=== PATIENT | female | born 1980 | race Two or more races ===

== ENCOUNTER 2017-10-16 07:39 | Emergency (ER) | payer BC, OTHER ==
[~2017-10-16] VITALS: Ht 167.6 cm; Wt 81.6 kg
[2017-10-16] MEDS ORDERED: cloNIDine HCL 0.1 MG TAB PO ONE (08:00)
[2017-10-16] MEDS ORDERED: HYDROcodone-ACET 10/325MG TAB PO ONE (08:30)
[2017-10-16 09:21] VITALS: BP 132/91
== END 2017-10-16 09:34 | disposition home or self-care (01) ==
LOC: ER 07:39
DX: I10 Essential (primary) hypertension (principal); F12.10 Cannabis abuse, uncomplicated
CPT/HCPCS: 93005

== ENCOUNTER 2020-12-20 22:20 | Emergency (ER) | payer BC, MEDICAID ==
[~2020-12-20] VITALS: Ht 167.6 cm; Wt 108.9 kg
[2020-12-21 02:00] VITALS: BP 166/92
[2020-12-21] MEDS ORDERED: IPRATROPIUM BROM 0.5 MG/2.5ML INH SOL NEB ONE (02:00)
[2020-12-21] MEDS ORDERED: ALBUTEROL SULF 2.5 MG/0.5ML(0.5%) NEB SOLN NEB ONE (02:00)
== END 2020-12-21 02:53 | disposition home or self-care (01) ==
LOC: ER 22:24
DX: J18.9 Pneumonia, unspecified organism (principal); Z20.822 Contact with and (suspected) exposure to COVID-19
CPT/HCPCS: 36415; 71045; 87426; 93005; 94640; 99285; J7644

== ENCOUNTER 2021-01-08 23:06 | Emergency (ER) | payer BC, MEDICAID ==
[~2021-01-08] VITALS: Ht 167.6 cm; Wt 90.7 kg
[2021-01-08 23:28] LABS: Hematocrit 37.8 % (36.0-46.0); Hemoglobin 12.9 g/dL (12.2-16.2); Mean Corpuscular Hemoglobin 29.4 pg (28.0-32.0); Mean Corpuscular Hgb Conc. 34.1 g/dL (32.0-36.0); Mean Corpuscular Volume 86.2 fL (80.0-100.0); Red Blood Cells 4.39 10^6/uL (4.0-5.20); Red Cell Distribution Width 14.7 % (11.8-14.3); White Blood Cell 13.2 10^3/uL (4.4-10.8)
[2021-01-08 23:31] LABS: Basophils % (manual) 0 (0.0-2.0); Blast Cells 0; Metamyelocytes % 0; Myelocytes % 0; Promyelocytes % 0; Reactive Lymphocytes 0
[2021-01-08 23:47] LABS: Anion Gap 6 (5-15); BUN/Creatinine Ratio 23.4; Blood Urea Nitrogen 18 mg/dL (7-18); Calcium 9.2 mg/dL (8.5-10.1); Carbon Dioxide 29 mmol/L (21-32); Chloride 107 mmol/L (98-107); GFR African American 106 mL/min; GFR Non-African American 88 mL/min; Glucose 154 mg/dL (74-106); Potassium 3.5 mmol/L (3.5-5.1); Sodium 142 mmol/L (136-145)
[2021-01-09 00:07] LABS: Band Neutrophils % (manual) 3; Eosinophils % (manual) 15 (0-7); Lymphocytes % (manual) 25 (10.0-50.0); Monocytes % (manual) 5 (0-12)
[2021-01-09] MEDS ORDERED: methylPREDNISolone SOD SUCC 125 MG/2 ML VL IV ONE (02:30)
[2021-01-09] MEDS ORDERED: AZITHROMYCIN 500MG/ 250ML 250 ML IV ONE (02:30)
[2021-01-09] MEDS ORDERED: SODIUM CHLORIDE 0.9% 1,000 ML IV ONE (02:30)
[2021-01-09] MEDS ORDERED: DOXYCYCLINE 100MG/250ML 250 ML IV ONE (02:30)
[2021-01-09] MEDS ORDERED: ALBUTEROL SULF 2.5 MG/0.5ML(0.5%) NEB SOLN NEB ONE (02:30)
[2021-01-09] MEDS ORDERED: IPRATROPIUM BROM 0.5 MG/2.5ML INH SOL NEB ONE (02:30)
[2021-01-09] MEDS ORDERED: PROMETHAZINE W/CODEINE 5 ML ORAL SYRUP PO ONE (03:15)
[2021-01-09 04:55] VITALS: BP 153/86
== END 2021-01-09 05:09 | disposition home or self-care (01) ==
LOC: ER 23:06
DX: J18.9 Pneumonia, unspecified organism (principal)
CPT/HCPCS: 36415; 71045; 80048; 84484; 85007; 85027; 93005; 94640; 96365; 96366; 96375; 99285; J2930; J3490; J7644

== ENCOUNTER 2021-10-01 17:17 | Inpatient (IN) | payer BC, MEDICAID, OTHER ==
[~2021-10-01] VITALS: Ht 167.6 cm; Wt 88.8 kg
[2021-10-01 20:01] LABS: BUN/Creatinine Ratio 13.8; Calcium 9.4 mg/dL (8.5-10.1); Potassium 3.1 mmol/L (3.5-5.1)
[2021-10-01 20:03] LABS: Bilirubin, Total 0.8 mg/dL (0.2-1.0); Total Protein 8.3 g/dL (6.4-8.2)
[2021-10-01 20:04] LABS: Hemoglobin 14.3 g/dL (12.2-16.2); Mean Corpuscular Hemoglobin 29.6 pg (28.0-32.0); Mean Corpuscular Volume 86.9 fL (80.0-100.0); Red Blood Cells 4.84 10^6/uL (4.0-5.20); Red Cell Distribution Width 13.9 % (11.8-14.3); White Blood Cell 14.9 10^3/uL (4.4-10.8)
[2021-10-01 20:07] LABS: Band Neutrophils % (manual) 0; Basophils % (manual) 0 (0.0-2.0); Blast Cells 0; Metamyelocytes % 0; Myelocytes % 0; Promyelocytes % 0; Reactive Lymphocytes 0
[2021-10-01] MEDS ORDERED: ALBUTEROL SULF 2.5 MG/0.5ML(0.5%) NEB SOLN NEB ONE (20:15)
[2021-10-01] MEDS ORDERED: IPRATROPIUM BROM 0.5 MG/2.5ML INH SOL NEB ONE (20:15)
[2021-10-01] MEDS ORDERED: CEFTRIAXONE SODIUM 2 GM in D5W 5% 50 ML IV ONE (20:15)
[2021-10-01] MEDS ORDERED: DexAMETHasone SOD PHOS 10MG/1ML VIAL INJ IV ONE (20:15)
[2021-10-01] MEDS ORDERED: guaiFENesin-CODEINE Liq 5 ML UD PO ONE (21:15)
[2021-10-01 21:55] LABS: Eosinophils % (manual) 22 (0-7); Lymphocytes % (manual) 6 (10.0-50.0); Monocytes % (manual) 1 (0-12)
[2021-10-01] MEDS ORDERED: AZITHROMYCIN 500MG/ 250ML 250 ML IV ONE (22:15)
[2021-10-01] MEDS ORDERED: ONDANSETRON HCL 4 MG/2 ML VIAL IV PRN (22:30)
[2021-10-01] MEDS ORDERED: NITROGLYCERIN 0.4 MG SL TAB SL PRN (22:30)
[2021-10-01] MEDS ORDERED: TEMAZEPAM 15 MG CAP PO PRN (22:30)
[2021-10-01] MEDS ORDERED: MORPHINE SULFATE INJECTION 2 MG/ML SYRG IV PRN (22:30)
[2021-10-01] MEDS ORDERED: ACETAMINOPHEN 325 MG TAB PO PRN (22:30)
[2021-10-02 00:57] VITALS: BP 145/83
[2021-10-02 02:00] VITALS: BP 128/77
[2021-10-02] MEDS ORDERED: AZIT250T9 PO (03:57)
[2021-10-02] MEDS ORDERED: TRIA37.56 PO (03:57)
[2021-10-02] MEDS ORDERED: BENZ200C64 PO (03:57)
[2021-10-02] MEDS ORDERED: METO25TA93 PO (03:57)
[2021-10-02] MEDS: guaiFENesin-CODEINE Liq 5 ML UD PO PRN ×2 (04:33→18:22)
[2021-10-02 05:00] VITALS: BP 148/84
[2021-10-02 05:31] LABS: Basophils # (auto) 0 10 ^3/uL (0-0.2); Basophils % (auto) 0.4 % (0.0-2.0); Eosinophils # (auto) 0.2 10 ^3/uL (0-0.8); Hematocrit 41.4 % (36.0-46.0); Hemoglobin 14.1 g/dL (12.2-16.2); Lymphocytes # (auto) 1.6 10 ^3/uL (0.4-5.4); Lymphocytes % (auto) 14.2 % (10.0-50.0); Mean Corpuscular Hemoglobin 29.2 pg (28.0-32.0); Mean Corpuscular Hgb Conc. 34.1 g/dL (32.0-36.0); Mean Corpuscular Volume 85.5 fL (80.0-100.0); Monocytes # (auto) 0.2 10 ^3/uL (0-1.3); Monocytes % (auto) 1.7 % (0.0-12.0); Neutrophils # (auto) 9.3 10 ^3/uL (1.6-8.6); Neutrophils % (auto) 81.7 % (37.0-80.0); Red Blood Cells 4.84 10^6/uL (4.0-5.20); White Blood Cell 11.4 10^3/uL (4.4-10.8)
[2021-10-02 05:44] LABS: Calcium 9.2 mg/dL (8.5-10.1); Potassium 3.6 mmol/L (3.5-5.1)
[2021-10-02 05:46] LABS: BUN/Creatinine Ratio 18.8
[2021-10-02 09:38] VITALS: BP 162/86
[2021-10-02] MEDS: ZINC SULFATE 220mg CAP or TAB PO SCH (09:50)
[2021-10-02] MEDS: PANTOPRAZOLE 40 MG TAB PO SCH (09:51)
[2021-10-02] MEDS: TRIAMTERENE/HCTZ 37.5/25 MG CAP/TAB PO SCH (09:51)
[2021-10-02] MEDS: ENOXAPARIN SOD 40 MG/0.4 ML SYRINGE SC SCH (09:52)
[2021-10-02] MEDS: METOPROLOL SUCCINATE XL 50 MG TAB PO SCH (09:52)
[2021-10-02] MEDS: ASCORBIC ACID 500 MG TAB PO SCH ×2 (09:52→21:19)
[2021-10-02] MEDS ORDERED: DexAMETHasone SOD PHOS 10MG/1ML VIAL INJ IV SCH (10:00)
[2021-10-02] MEDS ORDERED: LACTATED RINGER'S 1,000 ML IV SCH (15:15)
[2021-10-02 17:40] VITALS: BP 124/73
[2021-10-02] MEDS: cefTRIAXone 1GM/50ML D5W 50 ML IV SCH (21:18)
[2021-10-02 22:00] VITALS: BP 139/79
[2021-10-02] MEDS: AZITHROMYCIN 500MG/ 250ML 250 ML IV SCH (22:19)
[2021-10-03 05:00] VITALS: BP 135/74
[2021-10-03 05:39] LABS: Basophils # (auto) 0.1 10 ^3/uL (0-0.2); Basophils % (auto) 0.5 % (0.0-2.0); Eosinophils # (auto) 0.1 10 ^3/uL (0-0.8); Eosinophils % (auto) 0.7 % (0.0-7.0); Hematocrit 38.3 % (36.0-46.0); Hemoglobin 13.1 g/dL (12.2-16.2); Lymphocytes # (auto) 3.1 10 ^3/uL (0.4-5.4); Lymphocytes % (auto) 16.9 % (10.0-50.0); Mean Corpuscular Hemoglobin 29.5 pg (28.0-32.0); Mean Corpuscular Hgb Conc. 34.2 g/dL (32.0-36.0); Mean Corpuscular Volume 86.4 fL (80.0-100.0); Monocytes # (auto) 1.4 10 ^3/uL (0-1.3); Monocytes % (auto) 7.6 % (0.0-12.0); Neutrophils # (auto) 13.6 10 ^3/uL (1.6-8.6); Neutrophils % (auto) 74.3 % (37.0-80.0); Nucleated Red Blood Cells % 0.1 %; Red Blood Cells 4.44 10^6/uL (4.0-5.20); Red Cell Distribution Width 14.1 % (11.8-14.3); White Blood Cell 18.3 10^3/uL (4.4-10.8)
[2021-10-03 05:53] LABS: Potassium 3.4 mmol/L (3.5-5.1)
[2021-10-03 05:58] LABS: Albumin 3.6 g/dL (3.4-5.0); BUN/Creatinine Ratio 25.7; Calcium 8.9 mg/dL (8.5-10.1); Magnesium 2.5 mg/dL (1.6-2.6)
[2021-10-03 06:01] LABS: Bilirubin, Total 0.4 mg/dL (0.2-1.0); Total Protein 7.6 g/dL (6.4-8.2)
[2021-10-03] MEDS: IPRATROPIUM BROM 0.5 MG/2.5ML INH SOL NEB PRN ×2 (08:12→18:15)
[2021-10-03] MEDS: ALBUTEROL SULF 2.5 MG/0.5ML(0.5%) NEB SOLN NEB PRN ×2 (08:12→18:15)
[2021-10-03 09:00] VITALS: BP 138/92
[2021-10-03] MEDS: ZINC SULFATE 220mg CAP or TAB PO SCH (09:04)
[2021-10-03] MEDS: PANTOPRAZOLE 40 MG TAB PO SCH (09:05)
[2021-10-03] MEDS: ENOXAPARIN SOD 40 MG/0.4 ML SYRINGE SC SCH (09:06)
[2021-10-03] MEDS: ASCORBIC ACID 500 MG TAB PO SCH ×2 (09:06→23:00)
[2021-10-03] MEDS: METOPROLOL SUCCINATE XL 50 MG TAB PO SCH (09:06)
[2021-10-03] MEDS: POTASSIUM CHL 20 Meq TABLET PO SCH (09:24)
[2021-10-03] MEDS: TRIAMTERENE/HCTZ 37.5/25 MG CAP/TAB PO SCH (11:07)
[2021-10-03 13:00] VITALS: BP_SYST 105; BP_SYST 126; BP_DIAS 70; BP_DIAS 92
[2021-10-03] MEDS: guaiFENesin-CODEINE Liq 5 ML UD PO PRN (15:16)
[2021-10-03 16:50] VITALS: BP 129/85
[2021-10-03 22:00] VITALS: BP 119/82
[2021-10-03] MEDS: cefTRIAXone 1GM/50ML D5W 50 ML IV SCH (23:00)
[2021-10-04] MEDS: AZITHROMYCIN 500MG/ 250ML 250 ML IV SCH (00:54)
[2021-10-04] MEDS: guaiFENesin-CODEINE Liq 5 ML UD PO PRN ×2 (01:01→08:49)
[2021-10-04 05:00] VITALS: BP 123/77
[2021-10-04 05:39] LABS: Hematocrit 38.4 % (36.0-46.0); Hemoglobin 12.9 g/dL (12.2-16.2); Mean Corpuscular Hemoglobin 29.2 pg (28.0-32.0); Mean Corpuscular Hgb Conc. 33.7 g/dL (32.0-36.0); Mean Corpuscular Volume 86.5 fL (80.0-100.0); Red Blood Cells 4.43 10^6/uL (4.0-5.20); Red Cell Distribution Width 14.1 % (11.8-14.3); White Blood Cell 15.2 10^3/uL (4.4-10.8)
[2021-10-04 05:45] LABS: Band Neutrophils % (manual) 0; Blast Cells 0; Metamyelocytes % 0; Myelocytes % 0; Promyelocytes % 0
[2021-10-04 06:05] LABS: Potassium 3.3 mmol/L (3.5-5.1)
[2021-10-04 06:10] LABS: BUN/Creatinine Ratio 26.1; Calcium 8.4 mg/dL (8.5-10.1); Magnesium 2.2 mg/dL (1.6-2.6)
[2021-10-04 07:11] LABS: Basophils % (manual) 1 (0.0-2.0); Eosinophils % (manual) 16 (0-7); Lymphocytes % (manual) 35 (10.0-50.0); Monocytes % (manual) 4 (0-12); Reactive Lymphocytes 2
[2021-10-04] MEDS: ZINC SULFATE 220mg CAP or TAB PO SCH (08:39)
[2021-10-04] MEDS: POTASSIUM CHL 20 Meq TABLET PO SCH (08:40)
[2021-10-04] MEDS: TRIAMTERENE/HCTZ 37.5/25 MG CAP/TAB PO SCH (08:40)
[2021-10-04] MEDS: PANTOPRAZOLE 40 MG TAB PO SCH (08:40)
[2021-10-04] MEDS: METOPROLOL SUCCINATE XL 50 MG TAB PO SCH (08:41)
[2021-10-04] MEDS: ENOXAPARIN SOD 40 MG/0.4 ML SYRINGE SC SCH (08:41)
[2021-10-04] MEDS: ASCORBIC ACID 500 MG TAB PO SCH (08:44)
[2021-10-04 09:00] VITALS: BP 136/71
[2021-10-04] MEDS ORDERED: AMOXICILLIN/CLAVUL 875 MG TAB PO SCH (10:00)
[2021-10-04] MEDS: POTASSIUM CHL 10MEQ/50ML 50 ML IV SCH ×4 (10:55→15:00)
[2021-10-04] MEDS ORDERED: PANT40T PO (12:09)
[2021-10-04] MEDS ORDERED: ALB5IS NEB (12:09)
[2021-10-04] MEDS ORDERED: [UNRECOGNIZED DRUG - CODE] PO (12:09)
[2021-10-04] MEDS ORDERED: AMOX500T86 PO (12:11)
[2021-10-04 13:00] VITALS: BP 126/79
[2021-10-04] MEDS ORDERED: POTA-220 PO (14:22)
[2021-10-04 17:00] VITALS: BP 129/81
== END 2021-10-04 18:45 | disposition home or self-care (01) | DRG 139 ==
LOC: ER 17:17 → TELE 22:22 → TELE-EAST 23:47
PROVIDERS: ADMIT Nurse Practitioner; ATTEND Hospitalist
DX: J18.9 Pneumonia, unspecified organism (principal); J96.01 Acute respiratory failure with hypoxia; R65.10 Systemic inflammatory response syndrome (SIRS) of non-infectious origin without acute organ dysfunction; I10 Essential (primary) hypertension; E66.9 Obesity, unspecified; E87.6 Hypokalemia; Z20.822 Contact with and (suspected) exposure to COVID-19; D72.829 Elevated white blood cell count, unspecified; J45.909 Unspecified asthma, uncomplicated; T38.0X5A Adverse effect of glucocorticoids and synthetic analogues, initial encounter; Z86.16 Personal history of COVID-19; Y92.89 Other specified places as the place of occurrence of the external cause; Z68.30 Body mass index [BMI] 30.0-30.9, adult
CPT/HCPCS: 36415; 36600; 71045; 80048; 80053; 82728; 82805; 83605; 83735; 85007; 85025; 85027; 85379; 87040; 93005; 94640; 96365; 96367; 96375; G0378; J0696; J1100; J2405; J7060